=== PATIENT | male | born 1950 | race Caucasian/White ===

== ENCOUNTER 2023-08-28 13:11 | Emergency (ER) | payer SELFPAY ==
[~2023-08-28] VITALS: Ht 170.2 cm; Wt 77.3 kg
[~2023-08-28 13:11] MED LIST: AMLO-257 PO; ASPI-1198 PO; ATOR20TA PO
[2023-08-28] MEDS ORDERED: METF-1211 PO (13:14)
[2023-08-28 13:23] VITALS: TEMP 97.9
[2023-08-28] MEDS: ONDANSETRON HCL 4 MG/2 ML VIAL IVP ONE (13:31)
[2023-08-28] MEDS: MORPHINE SULFATE 4 MG/ML SYRINGE IVP ONE (13:31)
[2023-08-28 13:32] LABS: BASOPHILS % (AUTO) 0.9 % (0.0-2.0); EOSINOPHILS % (AUTO) 1.6 % (1.0-6.0); HEMATOCRIT 43.7 % (41-53); HEMOGLOBIN 14.8 g/dL (13.5-17.5); LYMPHOCYTES # (AUTO) 3.9 K/uL (1.0-4.8); LYMPHOCYTES % (AUTO) 41.6 % (22.0-44.0); MEAN CORPUSCULAR HEMOGLOBIN 32.3 pg (26.0-34.0); MEAN CORPUSCULAR HGB CONC 33.8 G/dL (31.0-37.0); MEAN CORPUSCULAR VOLUME 96 fL (80-100); MONOCYTES # (AUTO) 0.5 K/uL (0.1-1.0); MONOCYTES % (AUTO) 5.4 % (2.0-9.0); NEUTROPHILS # (AUTO) 4.7 K/uL (1.8-7.7); NEUTROPHILS % (AUTO) 50.5 % (40.0-70.0); PLATELET COUNT (AUTO) 227 K/uL (150-450); RED BLOOD CELL COUNT(AUTO) 4.57 MIL/uL (4.50-5.90); WHITE BLOOD COUNT (AUTO) 9.3 K/uL (4.5-11.0)
[2023-08-28 13:44] LABS: ANION GAP 6 mmol/L (8-16); CARBON DIOXIDE 32 mmol/L (22-29); CHLORIDE 102 mmol/L (98-107); GLOMERULAR FILTR. RATE CALC > 60 mL/min (>60); GLUCOSE,RANDOM 188 mg/dL (70-110); POTASSIUM 3.9 mmol/L (3.5-5.1); SODIUM SERUM 140 mmol/L (136-145); UREA NITROGEN, BLOOD 22 mg/dL (7-18)
[2023-08-28 13:45] LABS: PROTHROMBIN TIME 10.4 SEC (9.4-11.6)
[2023-08-28 13:49] LABS: ALANINE AMINOTRANSFERASE 26 U/L (12-78); ALBUMIN 3.6 g/dL (3.4-5.0); ALKALINE PHOSPHATASE 103 U/L (46-116); ASPARTATE AMINOTRANSFERASE 20 U/L (15-37); BILIRUBIN,TOTAL 0.9 mg/dL (0.1-1.0); TOTAL PROTEIN, SERUM 7.9 g/dL (6.4-8.2)
[2023-08-28] MEDS: HYDROmorphone HCL 2 MG/ML SYRINGE IVP ONE (14:43)
[2023-08-28] MEDS ORDERED: OXYC-38 PO (16:27)
[2023-08-28] MEDS ORDERED: IBUP-1492 PO (16:27)
[2023-08-28 16:48] VITALS: BP 154/84; PULSE 78; RESP 18
== END 2023-08-28 16:50 | disposition home or self-care (01) ==
LOC: EMS 13:11
DX: S43.005A Unspecified dislocation of left shoulder joint, initial encounter (principal); E11.9 Type 2 diabetes mellitus without complications; E78.00 Pure hypercholesterolemia, unspecified; I10 Essential (primary) hypertension; W11.XXXA Fall on and from ladder, initial encounter; Y93.89 Activity, other specified; Y92.89 Other specified places as the place of occurrence of the external cause; Y99.8 Other external cause status
CPT/HCPCS: 99285; 70450; 23650; 96374; 96375; 71045; 80053; 85025; 85610; 85730; 36415; 73020; 73030; 71250; 72125; 72128; 72131; 73200; 74176; J1170; J2270; J2405; 72192; 74150